=== PATIENT | female | born 1945 | race Caucasian/White ===

== ENCOUNTER → 2016-11-30 | Outpatient (CLI) | payer MEDICARE, OTHER ==
[~2016-11-30] MED LIST: ALEVE220 MG PO; BAYER CHEWABLE81 MG PO; COLACE100 MG PO; DESYREL50 MG PO; L-LYSINE500 MG PO; LEVOTHROID (SY88 MCG PO; LIPITOR20 M1 PO; LOVENOX 3030 MG/0.3 SUB-Q; LUTEIN6 M1 PO; MILK OF MA400 MG/5 M PO; NORCO 5-325 TA1 EACH PO; PRILOSEC20 MG PO; TRIAMTERENE-HC1 EAC1 PO; VITAMIN D35000 UNI1 PO
== END | disposition disaster alternative care site (69) ==
LOC: GRAD 11:53
DX: S32.9XXD Fracture of unspecified parts of lumbosacral spine and pelvis, subsequent encounter for fracture with routine healing (principal); S32.402D Unspecified fracture of left acetabulum, subsequent encounter for fracture with routine healing; S32.592D Other specified fracture of left pubis, subsequent encounter for fracture with routine healing; M25.552 Pain in left hip; X58.XXXD Exposure to other specified factors, subsequent encounter